=== PATIENT | female | born 1985 | race Caucasian/White ===

== ENCOUNTER → 2019-01-09 | Outpatient (CLI) | payer OTHER ==
--- NOTE | 2019-01-09 20:17 | MR ---
EXAMINATION TYPE: MR brain wo con DATE OF EXAM: 01/09/2019 COMPARISON: NONE HISTORY: Recurrent seizures TECHNIQUE: Multiplanar, multisequence imaging of the brain and brainstem is performed without IV cont rast. FINDINGS: Diffusion weighted images demonstrate no evidence of a recent infarct or other diffusion abnormality. There is no extraaxial fluid collection or significant white matter signal abnormality. The ventricu lar system and cisternal spaces are normal in size and appearance. The brain volume is age appropria te. T2 coronal weighted images show hippocampal gyri to appear symmetric and felt within normal limit s Midline structures demonstrate normal morphology. The craniocervical junction appears within normal limits. Normal vascular flow voids are present. Mild to moderate mucosal thickening involving ethmoid sinuses bilaterally is present. Mild mucosal thickening in inferior left maxillary sinus is seen. IMPRESSION: No suspicious finding is seen to account for patient's symptoms of recurrent seizures.
== END | disposition home or self-care (01) ==
LOC: RADMRIMAIN 19:39
PROVIDERS: ATTEND Psychiatry & Neurology Neurology
DX: G40.909 Epilepsy, unspecified, not intractable, without status epilepticus (principal)
CPT/HCPCS: 70551

== ENCOUNTER → 2019-02-10 | Outpatient (CLI) | payer OTHER | END | disposition home or self-care (01) | LOC: LABWHC1 09:43 | PROVIDERS: ATTEND Psychiatry & Neurology Neurology | DX: G40.909 Epilepsy, unspecified, not intractable, without status epilepticus (principal) | CPT/HCPCS: 36415; 80201 ==

== ENCOUNTER → 2023-05-06 | Outpatient (CLI) | payer OTHER ==
--- NOTE | 2023-05-06 20:02 | US ---
EXAMINATION TYPE: US venous doppler duplex LE LT DATE OF EXAM: 05/06/2023 5:03 PM COMPARISON: NONE CLINICAL INDICATION: Female, 38 years old with history of M79.605 LEFT LEG PAIN, M79.89 LEFT LEG SWEL LING,I82.402; Left calf "tightness" x 2 days. No hx of DVT. Not on blood thinners SIDE PERFORMED: Left TECHNIQUE: The lower extremity deep venous system is examined utilizing real time linear array sonog katelyn with graded compression, doppler sonography and color-flow sonography. VESSELS IMAGED: Common Femoral Vein Deep Femoral Vein Greater Saphenous Vein * Femoral Vein Popliteal Vein Small Saphenous Vein * Proximal Calf Veins (* superficial vessels) Left Leg: No evidence for DVT IMPRESSION: Grayscale, color doppler, spectral doppler imaging performed of the deep veins of the lo wer extremities. There is normal flow, compressibility, vascular waveforms.
== END | disposition home or self-care (01) ==
LOC: RADUSWWP 16:37
PROVIDERS: ATTEND Pediatrics
DX: I82.402 Acute embolism and thrombosis of unspecified deep veins of left lower extremity (principal); M79.89 Other specified soft tissue disorders; M79.605 Pain in left leg

== ENCOUNTER 2023-10-25 18:17 | Emergency (ER) | payer OTHER ==
[2023-10-25] MEDS ORDERED: KETOROLAC 15 MG/ML 1 ML VIAL IVP STA (18:46)
[2023-10-25] MEDS ORDERED: MORPHINE SULFATE 4 MG/ML SYRINGE IVP STA (18:46)
--- NOTE | 2023-10-25 18:52 | ED ---
General Adult HPI - General Chief complaint: Extremity Injury, Lower Stated complaint: Right Knee Injury Time Seen by Provider: 10/25/23 18:20 Source: patient, RN notes reviewed - History of Present Illness Initial comments: 38-year-old female presents to the emergency department chief complaint of right knee pain. Patient states and her knee hyperextended causing her to fall. She reports that she fell down 2 steps. She did not hit her head or lose consciousness, denies blood thinners. She reports pain to the right knee. PMH includes seizure disorder. - Related Data Previous Rx's Medication Instructions Recorded Ketorolac [Toradol] 10 mg PO Q8HR #15 tab 10/25/23 Lidocaine 5% Patch [Lidoderm 5% 1 patch TOPICAL DAILY #30 patch 10/25/23 Patch] Allergies Allergy/AdvReac Type Severity Reaction Status Date / Time No Known Allergies Allergy Verified 10/25/23 23:11 Review of Systems ROS Statement: Those systems with pertinent positive or pertinent negative responses have been documented in the HPI. ROS Other: All systems not noted in ROS Statement are negative. General Exam Limitations: no limitations General appearance: alert, in no apparent distress Head exam: Present: atraumatic, normocephalic, normal inspection Eye exam: Present: normal appearance, PERRL, EOMI. Absent: scleral icterus, conjunctival injection, periorbital swelling ENT exam: Present: normal exam, mucous membranes moist Neck exam: Present: normal inspection, full ROM. Absent: tenderness, menin gismus, lymphadenopathy Respiratory exam: Present: normal lung sounds bilaterally. Absent: respiratory distress, wheezes, rales, rhonchi, stridor Cardiovascular Exam: Present: regular rate, normal rhythm, normal heart sounds. Absent: systolic murmur, diastolic murmur, rubs, gallop, clicks Extremities exam: Present: tenderness (medial aspect of right knee), normal capillary refill, other (DP and PT pulses 2+ ). Absent: full ROM, calf tenderness Neurological exam: Present: alert, oriented X3 Psychiatric exam: Present: normal affect, normal mood Skin exam: Present: warm, dry, intact, normal color. Absent: rash Course Vital Signs 10/25/23 21:36 Temperature 98.0 F Pulse Rate 89 Respiratory 18 Rate Blood Pressure 139/78 O2 Sat by Pulse 99 Oximetry Medical Decision Making - Medical Decision Making Was pt. sent in by a medical professional or institution (CONSUELO Ruiz, DIRECTOR EPIDEMIOLOGY, urgent care, hospital, or long term...) When possible be specific @ -No Did you speak to anyone other than the patient for history (EMS, parent, family, police, friend...)? What history was obtained from this source @ -No Did you review nursing and triage notes (agree or disagree)? Why? @ -I reviewed and agree with nursing and triage notes Were old charts reviewed (outside hosp., previous admission, EMS record, old EKG, old radiological studies, urgent care reports/EKG's, long term records)? Report findings @ -No old charts were reviewed Differential Diagnosis (chest pain, altered mental status, abdominal pain women, abdominal pain men, vaginal bleeding, weakness, fever, dyspnea, syncope, headache, dizziness, GI bleed, back pain, seizure, CVA, palpatations, mental health, musculoskeletal)? @ -Differential Musculoskeletal Muscular strain, contusion, ligament sprain, fracture, arthritis, septic arthritis, bursitis, cellulitis, muscle spasm, nerve compression, DVT, arterial occlusion, herpes zoster, electrolyte abnormality, tumor.... This is not meant to be in all inclusive list EKG interpreted by me (3pts min.). @ -none X-rays interpreted by me (1pt min.). @ -XR right knee shows no acute fracture, possible high riding patella XR tib-fib shows no obvious acute fracture CT interpreted by me (1pt min.). @ -None done U/S interpreted by me (1pt. min.). @ -None done What testing was considered but not performed or refused? (CT, X-rays, U/S, labs)? Why? @ -None What meds were considered but not given or refused? Why? @ -None Did you discuss the management of the patient with other professionals (professionals i.e. CONSUELO Ruiz, DIRECTOR EPIDEMIOLOGY, lab, RT, psych nurse, elementary school social worker, job setter honing, teacher, bank compliance officer, binder caser)? Give summary @ -No Was smoking cessation discussed for >3mins.? @ -No Was critical care preformed (if so, how long)? @ -No Were there social determinants of health that impacted care today? How? (Homelessness, low income, unemployed, alcoholism, drug addiction, transportation, low edu. Level, literacy, decrease access to med. care, longterm, rehab)? @ -No Was there de-escalation of care discussed even if they declined (Discuss DNR or withdrawal of care, Hospice)? DNR status @ -No What co-morbidities impacted this encounter? (DM, HTN, Smoking, COPD, CAD, Cancer, CVA, ARF, Chemo, Hep., AIDS, mental health diagnosis, sleep apnea, morbid obesity)? @ -None Was patient admitted / discharged? Hospital course, mention meds given and route, prescriptions, significant lab abnormalities, going to OR and other pertinent info. @ -Discharged. Patient presented to the emergency department for evaluation of right knee pain after fall down 2 stairs. DP and PT pulses 2+, NVI. X-rays obtained show no acute fracture of the knee, tib-fib. Patient was placed in a knee immobilizer and given crutches. Advised to follow-up with orthopedics. Patient given Tylenol 3 starter pack, Motrin starter pack. Patient understanding and agreeable with discharge plan. Patient stable at time of discharge. Case discussed with Dr. Davenport who also evaluated the patient. Undiagnosed new problem with uncertain prognosis? @ -No Drug Therapy requiring intensive monitoring for toxicity (Heparin, Nitro, Insulin, Cardizem)? @ -No Were any procedures done? @ -No Diagnosis/symptom? @ -right knee pain Acute, or Chronic, or Acute on Chronic? @ -acute Uncomplicated (without systemic symptoms) or Complicated (systemic symptoms)? @ -uncomplicated Side effects of treatment? @ -No Exacerbation, Progression, or Severe Exacerbation? @ -No Poses a threat to life or bodily function? How? (Chest pain, [place], [place], pneumonia, PE, COPD, DKA, ARF, appy, cholecystitis, CVA, Diverticulitis, Homicidal, Suicidal, threat to staff... and all critical care pts) @ -No Disposition Clinical Impression: Right knee sprain Disposition: HOME SELF-CARE Condition: Stable Instructions (If sedation given, give patient instructions): Knee Sprain (ED) Additional Instructions: Please follow up with your primary care provider. Return to the emergency department for new or worsening symptoms. Is patient prescribed a controlled substance at d/c from ED?: No Referrals: Owen Storm MD [Primary Care Provider] - 1-2 days Faraz Briggs DO [Doctor of Osteopathic Medicine] - 1-2 days
--- NOTE | 2023-10-25 19:52 | XR ---
EXAMINATION TYPE: XR knee limited 2 views RT, XR tibia fibula 2 views RT DATE OF EXAM: 10/25/2023 Comparison: None Clinical History: 38-year-old female with pain after fall Findings: Knee: External artifact projecting over the anterior aspect of the young on the lateral view limiting asses sment. No obvious sizable joint effusion seen. On these 2 views, no acute fracture, subluxation, or d islocation. Tibia/fibula: Ankle joint appears grossly intact. No acute fracture seen. External artifacts at the ankle. Impression: Knee and tibia/fibula without acute osseous abnormality seen. Some external artifacts limiting assess ment
[2023-10-25] MEDS ORDERED: MORPHINE SULFATE 2 MG/ML SYRINGE IVP ONE (20:29)
[2023-10-25] MEDS ORDERED: IBUPROFEN 600 MG STARTER PACK 4 TAB BTL PO STA (21:33)
[2023-10-25] MEDS ORDERED: ACET/COD 300 MG/30 MG STARTER PACK 6 TAB BTL PO STA (21:33)
[2023-10-25 21:41] VITALS: BP 139/78; PULSE 89; RESP 18; TEMP 98
== END 2023-10-25 22:35 | disposition home or self-care (01) ==
LOC: EC 18:17
DX: S83.91XA Sprain of unspecified site of right knee, initial encounter (principal); W10.9XXA Fall (on) (from) unspecified stairs and steps, initial encounter
CPT/HCPCS: 73590; 73560; 99284; 96374; 96375; 96376; J2270 ×2; J1885